=== PATIENT | male | born 1965 | race Caucasian/White ===

== ENCOUNTER → 2016-11-14 | Outpatient (CLI) | payer OTHER | END | disposition home or self-care (01) | LOC: CVU 14:20 | PROVIDERS: ATTEND Physical Medicine & Rehabilitation | DX: I83.93 Asymptomatic varicose veins of bilateral lower extremities (principal); M79.89 Other specified soft tissue disorders; I50.9 Heart failure, unspecified; J44.9 Chronic obstructive pulmonary disease, unspecified | CPT/HCPCS: 93922 ==